=== PATIENT | male | born 1970 | race Caucasian/White ===

== ENCOUNTER → 2018-05-17 11:00 | Emergency (ER) | payer SELFPAY, MEDICAID ==
[2018-05-17] MEDS: HYDROCODONE/APAP (10/325) TAB PO (08:42)
[2018-05-17] MEDS: DIPHTH/TET/ACEL PERTUSS (ADULT) 0.5 ML VIAL IM* (08:42)
[2018-05-17] MEDS: LIDOCAINE 1% (MDV) 10 ML INJ INFIL ×2 (08:48→09:06)
[2018-05-17] MEDS: CEFAZOLIN 1 GM INJ IM (09:56)
== END | disposition home or self-care (01) ==
DX: S67.190A Crushing injury of right index finger, initial encounter (principal); W23.1XXA Caught, crushed, jammed, or pinched between stationary objects, initial encounter; Y92.9 Unspecified place or not applicable; Z23 Encounter for immunization
CPT/HCPCS: 12001; 73130-RT; 88305; 90471; 90715; 96372; 99284-25